=== PATIENT | male | born 1970 | race Caucasian/White ===

== ENCOUNTER 2024-03-31 09:21 | Emergency (ER) | payer OTHER, SELFPAY ==
--- NOTE | ~2024-03-31 | XR_ITS ---
EXAMINATION: XR foot RT min 3V DATE: 03/31/2024 09:57 INDICATION: Right foot injury and pain. TECHNIQUE: 4 views of right foot were obtained. COMPARISON: None. FINDINGS: Alignment is normal. There is a nondisplaced stellate fracture of first distal phalanx with involvement of the proximal articular surface. There are fragments of ossification at the medial bas es of the first and second proximal phalanges. 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 There are enthesophytes at the p osterior and plantar aspects of calcaneal tuberosity. There is heterotopic ossification distal to med ial malleolus. IMPRESSION: 1. Stellate fracture of first distal phalanx. 2. 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 Reviewed, dictated and finalized at location A. IMPRESSION: 1. Stellate fracture of first distal phalanx. 2. Heterotopic ossification medial to the bases of the first and second proxima l phalanges, which may be acute avulsion fractures and/or chronic findings.
[2024-03-31 09:37] VITALS: BP 185/106; PULSE 77; RESP 16; TEMP 35.9; O2SAT 95
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
[2024-03-31 10:35] VITALS: BP 165/104
== END 2024-03-31 10:35 | disposition home or self-care (01) ==
PROVIDERS: Emergency Provider Nurse Practitioner
DX: S92.424A Nondisplaced fracture of distal phalanx of right great toe, initial encounter for closed fracture (principal); S92.501A Displaced unspecified fracture of right lesser toe(s), initial encounter for closed fracture; V86.39XA Unspecified occupant of other special all-terrain or other off-road motor vehicle injured in traffic accident, initial encounter; I10 Essential (primary) hypertension
CPT/HCPCS: 29515; 73630; 99214; G0463